=== PATIENT | female | born 1970 | race American Indian/Alaskan Native ===

== ENCOUNTER 2020-08-25 15:50 | Emergency (ER) | payer SELFPAY ==
[2020-08-25 17:12] VITALS: BP 136/91
[2020-08-25 17:34] LABS: Basophils % (Auto) 0.5 % (0.0-1.8); Eosinophils # (Auto) 0.1 K/mm3 (0.0-0.4); Eosinophils % (Auto) 2.6 % (0.0-4.3); Hematocrit 31.7 % (30.3-42.9); Hemoglobin 10.4 gm/dl (10.1-14.3); Lymphocytes # (Auto) 2.2 K/mm3 (1.2-5.4); Lymphocytes % (Auto) 46.3 % (13.4-35.0); Mean Corpuscular HGB Conc 33 % (30-34); Mean Corpuscular Volume 83 fl (79-97); Monocytes # (Auto) 0.5 K/mm3 (0.0-0.8); Monocytes % (Auto) 10.7 % (0.0-7.3); Platelet Count 253 K/mm3 (140-440); Red Blood Count 3.81 M/mm3 (3.65-5.03); Red Cell Distribution Width 17.7 % (13.2-15.2)
[2020-08-25 17:49] LABS: INR 0.99 (0.87-1.13); Partial Thromboplastin Time 26.5 Sec. (24.2-36.6)
[2020-08-25 18:00] LABS: Alanine Aminotransferase 11 units/L (7-56); Albumin 3.9 g/dL (3.9-5); Blood Urea Nitrogen 11 mg/dL (7-17); Calcium 8.4 mg/dL (8.4-10.2); Hemolysis Index 18
[2020-08-25 18:02] LABS: BUN/Creatinine Ratio 16
--- NOTE | 2020-08-25 18:15 | Emergency Department Report ---
ED Female HPI - General Chief complaint: Vaginal Bleeding Stated complaint: VAG BLEEDING Time Seen by Provider: 08/25/20 17:09 Source: patient Mode of arrival: Ambulatory Limitations: No Limitations - History of Present Illness Initial comments: Patient is a 50-year-old female who presents emergency room with complaints of heavy vaginal bleeding the last 3 days. She states that she is changing her pad approximately every hour. She states that she went to [facility] gynecology today and advised to present to the emergency room to have her blood counts checked and that they scheduled her to have an ultrasound performed on Friday08/28/2020. She states that she has had irregular cycles over the last year. She states that she has not had a cycle for about 3 months. She states that whenever she does have a cycle it is typically heavy and abnormal. She states that she does have some lower abdominal cramping and lower back discomfort. She denies any fever, nausea, vomiting, diarrhea, urinary symptoms, abnormal vaginal discharge. She has a past medical history of Covid which she reports she had to stay in the hospital for 18 days, she states that she is currently on 60-day course of Xarelto and reports that she only has a few days left to complete her course. She states that she was not placed on the Xarelto for a blood clot, she states that she did not have a blood clot in the leg or the lung, she states that they just put her on it due to the Covid. She denies any medication allergies. She has no history of hypertension, cardiac history, diabetes, she is a non-smoker. - Related Data Previous Rx's Medication Instructions Recorded Last Taken Type medroxyPROGESTERone ACETATE 10 mg PO DAILY 10 Days #10 tablet 08/25/20 Unknown Rx [Provera] ED Review of Systems ROS: Stated complaint: VAG BLEEDING Other details as noted in HPI Comment: All other systems reviewed and negative ED Past Medical Hx - Past Medical History Previous Medical History?: No - Surgical History Past Surgical History?: Yes Additional Surgical History: T&A - Medications Home Medications: Home Medications Medication Instructions Recorded Confirmed Last Taken Type medroxyPROGESTERone ACETATE 10 mg PO DAILY 10 Days #10 tablet 08/25/20 Unknown Rx [Provera] ED Physical Exam - General Limitations: No Limitations General appearance: alert, in no apparent distress - Head Head exam: Present: atraumatic, normocephalic - Eye Eye exam: Present: normal appearance - ENT ENT exam: Present: mucous membranes moist - Respiratory Respiratory exam: Present: normal lung sounds bilaterally. Absent: respiratory distress, wheezes, rales, rhonchi, stridor, chest wall tenderness, accessory muscle use, decreased breath sounds, prolonged expiratory - Cardiovascular Cardiovascular Exam: Present: regular rate, normal rhythm, normal heart sounds. Absent: systolic murmur, diastolic murmur, rubs, gallop - GI/Abdominal GI/Abdominal exam: Present: soft, normal bowel sounds. Absent: distended, tenderness, guarding, rebound, rigid - Neurological Exam Neurological exam: Present: alert, oriented X3 - Psychiatric Psychiatric exam: Present: normal affect, normal mood - Skin Skin exam: Present: warm, dry, intact ED Course Vital Signs 08/25/20 17:11 Temperature 98.4 F Pulse Rate 95 H Respiratory 18 Rate Blood Pressure 136/91 O2 Sat by Pulse 100 Oximetry ED Medical Decision Making - Lab Data Result diagrams: 08/25/20 17:18 08/25/20 17:18 Lab Results 08/25/20 08/25/20 08/25/20 Range/Units 17:18 17:18 17:18 WBC 4.8 (4.5-11.0) K/mm3 RBC 3.81 (3.65-5.03) M/mm3 Hgb 10.4 (10.1-14.3) gm/dl Hct 31.7 (30.3-42.9) % MCV 83 (79-97) fl MCH 27 L (28-32) pg MCHC 33 (30-34) % RDW 17.7 H (13.2-15.2) % Plt Count 253 (140-440) K/mm3 Lymph % (Auto) 46.3 H (13.4-35.0) % [place] % (Auto) 10.7 H (0.0-7.3) % Eos % (Auto) 2.6 (0.0-4.3) % Baso % (Auto) 0.5 (0.0-1.8) % Lymph # (Auto) 2.2 (1.2-5.4) K/mm3 [place] # (Auto) 0.5 (0.0-0.8) K/mm3 Eos # (Auto) 0.1 (0.0-0.4) K/mm3 Baso # (Auto) 0.0 (0.0-0.1) K/mm3 Seg Neutrophils % 39.9 L (40.0-70.0) % Seg Neutrophils # 1.9 (1.8-7.7) K/mm3 PT 12.9 (12.2-14.9) Sec. INR 0.99 (0.87-1.13) APTT 26.5 (24.2-36.6) Sec. Sodium 138 (137-145) mmol/L Potassium 3.9 (3.6-5.0) mmol/L Chloride 105.0 (98-107) mmol/L Carbon Dioxide 24 (22-30) mmol/L Anion Gap 13 mmol/L BUN 11 (7-17) mg/dL Creatinine 0.7 (0.6-1.2) mg/dL Estimated GFR > 60 ml/min BUN/Creatinine Ratio 16 % Glucose 85 (65-100) mg/dL Calcium 8.4 (8.4-10.2) mg/dL Total Bilirubin 0.30 (0.1-1.2) mg/dL AST 15 (5-40) units/L ALT 11 (7-56) units/L Alkaline Phosphatase 47 (35-129) units/L Total Protein 7.0 (6.3-8.2) g/dL Albumin 3.9 (3.9-5) g/dL Albumin/Globulin Ratio 1.3 % HCG, Qual (Negative) // Range/Units 17:18 WBC (4.5-11.0) K/mm3 RBC (3.65-5.03) M/mm3 Hgb (10.1-14.3) gm/dl Hct (30.3-42.9) % MCV (79-97) fl MCH (28-32) pg MCHC (30-34) % RDW (13.2-15.2) % Plt Count (140-440) K/mm3 Lymph % (Auto) (13.4-35.0) % [place] % (Auto) (0.0-7.3) % Eos % (Auto) (0.0-4.3) % Baso % (Auto) (0.0-1.8) % Lymph # (Auto) (1.2-5.4) K/mm3 [place] # (Auto) (0.0-0.8) K/mm3 Eos # (Auto) (0.0-0.4) K/mm3 Baso # (Auto) (0.0-0.1) K/mm3 Seg Neutrophils % (40.0-70.0) % Seg Neutrophils # (1.8-7.7) K/mm3 PT (12.2-14.9) Sec. INR (0.87-1.13) APTT (24.2-36.6) Sec. Sodium (137-145) mmol/L Potassium (3.6-5.0) mmol/L Chloride (98-107) mmol/L Carbon Dioxide (22-30) mmol/L Anion Gap mmol/L BUN (7-17) mg/dL Creatinine (0.6-1.2) mg/dL Estimated GFR ml/min BUN/Creatinine Ratio % Glucose (65-100) mg/dL Calcium (8.4-10.2) mg/dL Total Bilirubin (0.1-1.2) mg/dL AST (5-40) units/L ALT (7-56) units/L Alkaline Phosphatase (35-129) units/L Total Protein (6.3-8.2) g/dL Albumin (3.9-5) g/dL Albumin/Globulin Ratio % HCG, Qual Negative (Negative) - Medical Decision Making Patient is a 50-year-old female who presents emergency room with complaints of heavy vaginal bleeding the last 3 days. She states that she is changing her pad approximately every hour. She states that she went to [facility] gynecology today and advised to present to the emergency room to have her blood counts checked and that they scheduled her to have an ultrasound performed on Friday08/28/2020. She states that she has had irregular cycles over the last year. She states that she has not had a cycle for about 3 months. She states that whenever she does have a cycle it is typically heavy and abnormal. She states that she does have some lower abdominal cramping and lower back discomfort. She denies any fever, nausea, vomiting, diarrhea, urinary symptoms, abnormal vaginal discharge. She has a past medical history of Covid which she reports she had to stay in the hospital for 18 days, she states that she is currently on 60-day course of Xarelto and reports that she only has a few days left to complete her course. She states that she was not placed on the Xarelto for a blood clot, she states that she did not have a blood clot in the leg or the lung, she states that they just put her on it due to the Covid. She denies any medication allergies. She has no history of hypertension, cardiac history, diabetes, she is a non-smoker. Vitals are normal. No abdominal tenderness on exam, no guarding, no rebound, no rigidity, no bowel sounds, no peritoneal signs. Labs are normal. Discussed all results with patient answered questions. Patient will be started on short course of Provera and discussed the importance of keeping her appointment on Friday with a [facility] [employer]. Advised patient to continue her course of Xarelto until she is finished. Discussed case with Dr. Wilson, ER attending who agreed with plan. Advised patient please take medication as prescribed. Please follow-up with your [facility] [employer] and keep your appointment for Friday. Return to emergency room for new or worsening symptoms. Critical care attestation.: If time is entered above; I have spent that time in minutes in the direct care of this critically ill patient, excluding procedure time. ED Disposition Clinical Impression: Abnormal uterine bleeding (AUB) Menorrhagia Qualifiers: Menorrhagia type: with irregular cycle Qualified Code(s): N92.1 - Excessive and frequent menstruation with irregular cycle Disposition: - TO HOME OR SELFCARE Is pt being admited?: No Does the pt Need Aspirin: No Condition: Stable Instructions: Abnormal Uterine Bleeding, Menorrhagia Additional Instructions: Please take medication as prescribed. Please follow-up with your [facility] [employer] and keep your appointment for Friday. Return to emergency room for new or worsening symptoms. Prescriptions: medroxyPROGESTERone ACETATE [Provera] 10 mg PO DAILY 10 Days #10 tablet Referrals: your, [facility] [Other] - 2-3 Days Print Language: [place]
== END 2020-08-25 18:41 | disposition home or self-care (01) ==
LOC: ED 15:50
DX: N92.0 Excessive and frequent menstruation with regular cycle (principal); Z79.899 Other long term (current) drug therapy
CPT/HCPCS: 36415; 80053; 84703; 85025; 85610; 85730; 99283